=== PATIENT | female | born 1995 | race Caucasian/White ===

== ENCOUNTER 2018-08-23 17:12 | Emergency (ER) | payer MEDICAID ==
--- NOTE | 2018-08-23 18:09 | ER Document Report ---
ED Medical Screen (RME) - General Chief Complaint: Abdominal Pain Stated Complaint: LOWER ABDOMINAL PAIN Time Seen by Provider: 08/23/18 18:02 Mode of Arrival: Ambulatory Information source: Patient Notes: Patient is an otherwise healthy 23-year-old female who presents to the emergency department with chief complaint of low abdominal and pelvic pain. Patient reports pain has been going on for several days, she also reports abnormal discharge that she describes as a grayish/bloody discharge. He denies any concern for sexually transmitted infections. Denies any fevers, nausea, vomiting or diarrhea. Exam: Tenderness to palpation to suprapubic area. I have greeted and performed a rapid initial assessment of this patient. A comprehensive ED assessment and evaluation of the patient, analysis of test results and completion of the medical decision making process will be conducted by additional ED providers. Dictation of this chart was performed using voice recognition software; therefore, there may be some unintended grammatical errors. TRAVEL OUTSIDE OF THE U.S[place] IN LAST 30 DAYS: No - Related Data Allergies/Adverse Reactions: latex Allergy (Verified 08/23/18 17:14) Past Medical History Renal/ Medical History: Denies: Hx Peritoneal Dialysis Physical Exam - Vital signs Vitals: Temp Pulse Resp BP Pulse Ox 97.7 F 85 16 123/69 99 08/23/18 17:38 08/23/18 17:38 08/23/18 17:38 08/23/18 17:38 08/23/18 17:38 Course - Vital Signs Vital signs: Temp Pulse Resp BP Pulse Ox 97.7 F 85 16 123/69 99 08/23/18 17:38 08/23/18 17:38 08/23/18 17:38 08/23/18 17:38 08/23/18 17:38
[2018-08-23 18:41] LABS: HEMATOCRIT 36.6 % (36.0-47.0)
[2018-08-23 18:47] LABS: HEMOGLOBIN 12.3 g/dL (12.0-15.5); MEAN CORPUSCULAR HEMOGLOBIN 27.2 pg (27.0-33.4); MEAN CORPUSCULAR HGB CONC 33.5 g/dL (32.0-36.0); MEAN CORPUSCULAR VOLUME 81 fl (80-97); PLATELET COUNT 295 10^3/uL (150-450); RED BLOOD COUNT 4.52 10^6/uL (3.72-5.28); RED CELL DISTRIBUTION WIDTH 16.3 % (11.5-14.0); WHITE BLOOD COUNT 5.7 10^3/uL (4.0-10.5)
[2018-08-23 19:00] LABS: ALANINE AMINOTRANSFERASE 17 U/L (9-52); ALBUMIN 4.1 g/dL (3.5-5.0); ALKALINE PHOSPHATASE 62 U/L (38-126); ANION GAP 7 (5-19); ASPARTATE AMINO TRANSFERASE 17 U/L (14-36); BILIRUBIN,DIRECT 0.2 mg/dL (0.0-0.4); BILIRUBIN,TOTAL 0.2 mg/dL (0.2-1.3); BLOOD UREA NITROGEN 11 mg/dL (7-20); CALCIUM 9.4 mg/dL (8.4-10.2); CARBON DIOXIDE 23 mmol/L (22-30); CHLORIDE 110 mmol/L (98-107); POTASSIUM 3.7 mmol/L (3.6-5.0); SODIUM 139.7 mmol/L (137-145); TOTAL PROTEIN 7.1 g/dL (6.3-8.2)
[2018-08-23 19:02] LABS: GLUCOSE 66 mg/dL (75-110)
[2018-08-23 19:09] LABS: APPEARANCE,URINE CLOUDY; BILIRUBIN,URINE NEGATIVE (NEGATIVE); COLOR,URINE YELLOW; GLUCOSE, URINE NEGATIVE (NEGATIVE); KETONES,URINE NEGATIVE (NEGATIVE); LEUKOCYTE ESTERASE,URINE TRACE (NEGATIVE); NITRITE,URINE NEGATIVE (NEGATIVE); PROTEIN,URINE 30 mg/dL (NEGATIVE); URINE SPECIFIC GRAVITY 1.032
[2018-08-23 19:10] LABS: ABSOLUTE LYMPHOCYTES# (MANUAL) 2.4 10^3/uL (0.5-4.7); ABSOLUTE MONOCYTES # (MANUAL) 0.6 10^3/uL (0.1-1.4); ABSOLUTE NEUTROPHILS# (MANUAL) 2.5 10^3/uL (1.7-8.2); BASOPHILS % (MANUAL) 0 % (0-2); EOSINOPHILS % (MANUAL) 5 % (0-6); LYMPHOCYTES % (MANUAL) 40 % (13-45); MONOCYTES % (MANUAL) 10 % (3-13); SEGMENTED NEUTROPHILS % (MAN) 43 % (42-78); TOTAL CELLS COUNTED 100
[2018-08-23 19:11] LABS: PLATELET COMMENT ADEQUATE
[2018-08-23 19:18] LABS: ANISOCYTOSIS 1+; HYPOCHROMASIA SLIGHT; TEAR DROP CELLS 2+
--- NOTE | 2018-08-23 21:01 | ER Document Report ---
ED General - General Chief Complaint: Abdominal Pain Stated Complaint: LOWER ABDOMINAL PAIN Time Seen by Provider: 08/23/18 18:02 Primary Care Provider: DONALD ENCISO MD [Primary Care Provider] - Follow up as needed Mode of Arrival: Ambulatory TRAVEL OUTSIDE OF THE U.S. IN LAST 30 DAYS: No - HPI Patient complains to provider of: Right-sided pelvic pain Onset: Last week Onset/Duration: Gradual, Constant Quality of pain: Sharp Severity: Moderate Pain Level: 3 Associated symptoms: denies: Chills, Fever Exacerbated by: Movement Relieved by: Denies Similar symptoms previously: Yes Recently seen / treated by doctor: No Notes: Patient is a 23-year-old female coming in today with pain in her right pelvic area for the past week. Has had nausea. Has had abdominal bloating. Has had decreased appetite. Has had unintended weight loss. Patient reports a history of ovarian carcinoma which was treated in [place] a while ago. She is concerned because the symptoms that she is experiencing today are similar to those that she felt when she was diagnosed. - Related Data Allergies/Adverse Reactions: latex Allergy (Verified 08/23/18 17:14) Past Medical History - General Information source: Patient - Social History Smoking Status: Current Every Day Smoker Family History: Reviewed & Not Pertinent Patient has suicidal ideation: No Patient has homicidal ideation: No Renal/ Medical History: Denies: Hx Peritoneal Dialysis Review of Systems - Review of Systems Notes: Constitutional: No fevers. No chills. Positive for weight loss EENT: No eye redness. No eye pain. No ear pain. No sore throat. Cardiovascular: No chest pain. No palpitations. Respiratory: No cough. No shortness of breath. No respiratory distress. Gastrointestinal: No abdominal pain. No nausea, vomiting, or diarrhea. Positive for appetite loss Genitourinary: Atraumatic. No lesions. No pain. No discharge. Positive for right sided pelvic pain Musculoskeletal: Atraumatic. No swelling. No deformities. Skin: No rash or lesions. Lymphatic: No swollen lymph nodes. Neurologic: No headache. No syncope. Psychiatric: No suicidal or homicidal ideation. Physical Exam - Vital signs Vitals: Temp Pulse Resp BP Pulse Ox 97.7 F 85 16 123/69 99 08/23/18 17:38 08/23/18 17:38 08/23/18 17:38 08/23/18 17:38 08/23/18 17:38 - Notes Notes: General: Well-developed, well-nourished. In no acute distress. Non-toxic appearing. Cardiac: Well-perfused. Regular rate and rhythm. No murmurs, rubs, or gallops. Pulmonary: No respiratory distress. No cyanosis. Bilateral lung fiels are clear to auscultation. Abdominal: Non-distended. Non-rigid. Bowels sounds are present in all four quadrants. No guarding or rebound. Right lower quadrant/right pelvic tenderness to palpation HEENT: Head is atraumatic. Conjunctivae not reddened. No tearing. PERRL. EOMI. Orbits atraumatic. No periorbital swelling or erythema. Oropharynx is without erythema, swelling, or exudates. Neck: Supple. No adenopathy. No meningismus. Dermatologic: Warm with good turgor. No rash. Atraumatic. Chest: Atraumatic. No chest wall tenderness to palpation. Musculoskeletal: Moves all extremities well. No range of motion deficits. no muscular or joint tenderness. No paraspinal muscle tenderness. no midline spinal tenderness or step-off. Genitourinary: Examination deferred Neurologic: No gross neurologic deficits. Psychiatric: Normal mood. Course - Re-evaluation Re-evalutation: 08/23/18 21:00 Patient refuses STD swabs. Only interested in finding out if there is something going on with her ovaries or something requiring surgery. Pelvic exam is also refused. Labs have been drawn. Given her history, will order CT scan abdomen and pelvis with IV contrast. 08/23/18 22:41 CT scan was negative. Labs are reassuring. No evidence of anemia. Will write for some pain medication and nausea medication for over the weekend. I will have her follow-up with the gynecology group on Sunday have this further assessed. - Vital Signs Vital signs: Temp Pulse Resp BP Pulse Ox 97.7 F 85 16 123/69 99 08/23/18 17:38 08/23/18 17:38 08/23/18 17:38 08/23/18 17:38 08/23/18 17:38 - Laboratory Result Diagrams: 08/23/18 18:00 08/23/18 18:00 Laboratory results interpreted by me: 08/23/18 08/23/18 08/23/18 18:00 18:00 18:00 RDW 16.3 H Chloride 110 H Glucose 66 L Urine Protein 30 H Urine Urobilinogen 2.0 H Ur Leukocyte Esterase TRACE H Discharge - Discharge Clinical Impression: Right lower quadrant pain Condition: Good Disposition: HOME, SELF-CARE Instructions: Abdominal Pain ([facility]) Additional Instructions: Because of your cancer history, I would like for you to follow-up with the gynecology practice. Please call their phone number on Sunday and explain that you are seen in the emergency department and that we referred you there. Prescriptions: Ondansetron [Zofran Odt 4 mg Tablet] 1 - 2 tab PO Q4HP PRN #15 tab.rapdis PRN Reason: Hydrocodone/Acetaminophen [Mont[place] 5-325 mg Tablet] 1 tab PO Q6HP PRN #15 tablet PRN Reason: Referrals: DONALD ENCISO MD [Primary Care Provider] - Follow up as needed
--- NOTE | 2018-08-23 21:53 | RADIOLOGY REPORT (SQ) ---
EXAM DESCRIPTION: CT ABDOMEN PELVIS WITH IV CONTRAST COMPLETED DATE/TME: 08/23/2018 20:57 CLINICAL HISTORY: 23 years, Female, Right lower abdomen pain COMPARISON: None. EXAM DESCRIPTION: CLINICAL HISTORY: Right lower abdomen pain COMPARISON: None Available TECHNIQUE: Contiguous axial images of the abdomen and pelvis were obtained after the administration of intravenous contrast followed by reconstruction images.This exam was performed according to our departmental dose-optimization program, which includes automated exposure control, adjustment of the mA and/or kV according to patient size and/or use of iterative reconstruction technique. FINDINGS: Clips are in the right lower quadrant. There is no evidence of appendicitis. Small paraumbilical hernia contains fat but no bowel. The liver, spleen, pancreas and kidneys are within normal limits. There is no hydronephrosis. The gallbladder is unremarkable. Adrenal glands are within normal limits. Aorta is normal in caliber and tapering. No significant free fluid. No free air. No bowel obstruction. There is no stranding of the mesenteric fat. IMPRESSION: No acute intra-abdominal abnormality
[2018-08-23 23:10] VITALS: BP 113/64
== END 2018-08-23 23:10 | disposition home or self-care (01) ==
LOC: ER 17:12
DX: R10.31 Right lower quadrant pain (principal); R10.813 Right lower quadrant abdominal tenderness; R10.2 Pelvic and perineal pain; R11.0 Nausea; R63.4 Abnormal weight loss; R63.0 Anorexia; R14.0 Abdominal distension (gaseous); F17.200 Nicotine dependence, unspecified, uncomplicated; Z91.040 Latex allergy status; Z85.43 Personal history of malignant neoplasm of ovary
CPT/HCPCS: 36415; 74177; 80053; 81001; 84703; 85025; 87086; 99284

== ENCOUNTER 2019-05-24 14:48 | Emergency (ER) | payer SELFPAY ==
[2019-05-24 14:52] VITALS: BP 110/63
[2019-05-24] MEDS ORDERED: MAG HYDROX/AL HYDROX/SIMETH SUSP 30 ML UDCUP PO ONE (16:37)
[2019-05-24] MEDS ORDERED: METOCLOPRAMIDE HCL ORAL SOLN 10 MG/10 ML UDCUP PO ONE (16:37)
[2019-05-24] MEDS ORDERED: LIDOCAINE 2% VISCOUS SOLN 20 ML UDCUP PO ONE (16:37)
--- NOTE | 2019-05-24 16:40 | ER Document Report ---
ED Medical Screen (RME) - General Chief Complaint: Lower Abdominal Pain Stated Complaint: ABDOMINAL PAIN Time Seen by Provider: 05/24/19 16:32 Primary Care Provider: DONALD ENCISO MD [Primary Care Provider] - Follow up as needed Notes: Patient is a 24-year-old female who presents the emergency department with a chief complaint of epigastric pain. Her symptoms started yesterday. She states that it feels like a burning pain. It comes and goes. Patient has history of cholelithiasis in the past and was supposed to have her gallbladder removed, but she has not. Patient also has history of a tubal ligation. Exam: Mildly tender mid upper abdomen. I have greeted and performed a rapid initial assessment of this patient. A comprehensive ED assessment and evaluation of the patient, analysis of test results and completion of medical decision making process will be conducted by an additional ED providers. TRAVEL OUTSIDE OF THE [place] IN LAST 30 DAYS: No - Related Data Allergies/Adverse Reactions: latex Allergy (Verified 08/23/18 17:14) Past Medical History - Social History Chew tobacco use (# tins/day): No Frequency of alcohol use: None Drug Abuse: None Renal/ Medical History: Denies: Hx Peritoneal Dialysis Physical Exam - Vital signs Vitals: Temp Pulse Resp BP Pulse Ox 97.9 F 71 14 110/63 98 05/24/19 14:51 05/24/19 14:51 05/24/19 14:51 05/24/19 14:51 05/24/19 14:51 Course - Vital Signs Vital signs: Temp Pulse Resp BP Pulse Ox 97.9 F 71 14 110/63 98 05/24/19 14:51 05/24/19 14:51 05/24/19 14:51 05/24/19 14:51 05/24/19 14:51 Doctor's Discharge - Discharge Referrals: DONALD ENCISO MD [Primary Care Provider] - Follow up as needed
[2019-05-24 17:13] LABS: ABSOLUTE BASOPHILS # (AUTO) 0.1 10^3/uL (0.0-0.2); ABSOLUTE EOSINOPHILS # (AUTO) 0.3 10^3/uL (0.0-0.6); ABSOLUTE LYMPHOCYTES (AUTO) 2.4 10^3/uL (0.5-4.7); ABSOLUTE MONOCYTES (AUTO) 0.8 10^3/uL (0.1-1.4); ABSOLUTE NEUT (AUTO) 3.9 10^3/uL (1.7-8.2); BASOPHILS % (AUTO) 1.3 % (0-2); EOSINOPHILS % (AUTO) 4.1 % (0-6); HEMATOCRIT 35.1 % (36.0-47.0); HEMOGLOBIN 11.2 g/dL (12.0-15.5); LYMPHOCYTES % (AUTO) 32.1 % (13-45); MEAN CORPUSCULAR HEMOGLOBIN 23.5 pg (27.0-33.4); MEAN CORPUSCULAR HGB CONC 31.9 g/dL (32.0-36.0); MEAN CORPUSCULAR VOLUME 74 fl (80-97); MONOCYTES % (AUTO) 10.9 % (3-13); PLATELET COUNT 361 10^3/uL (150-450); RED BLOOD COUNT 4.77 10^6/uL (3.72-5.28); RED CELL DISTRIBUTION WIDTH 17.7 % (11.5-14.0); SEGMENTED NEUTROPHILS % (AUTO) 51.6 % (42-78); TOTAL CELLS COUNTED % (AUTO) 100 %; WHITE BLOOD COUNT 7.6 10^3/uL (4.0-10.5)
[2019-05-24 17:16] LABS: APPEARANCE,URINE SLIGHTLY-CLOUDY; BILIRUBIN,URINE NEGATIVE (NEGATIVE); COLOR,URINE YELLOW; GLUCOSE, URINE NEGATIVE (NEGATIVE); KETONES,URINE NEGATIVE (NEGATIVE); LEUKOCYTE ESTERASE,URINE NEGATIVE (NEGATIVE); NITRITE,URINE NEGATIVE (NEGATIVE); PROTEIN,URINE NEGATIVE (NEGATIVE); URINE SPECIFIC GRAVITY 1.028
[2019-05-24 17:31] LABS: ALBUMIN 4.4 g/dL (3.5-5.0); ALKALINE PHOSPHATASE 60 U/L (38-126); ANION GAP 8 (5-19); ASPARTATE AMINO TRANSFERASE 17 U/L (14-36); BILIRUBIN,DIRECT 0.2 mg/dL (0.0-0.4); BILIRUBIN,TOTAL 0.3 mg/dL (0.2-1.3); BLOOD UREA NITROGEN 11 mg/dL (7-20); CALCIUM 9.4 mg/dL (8.4-10.2); CARBON DIOXIDE 26 mmol/L (22-30); CHLORIDE 107 mmol/L (98-107); GLUCOSE 88 mg/dL (75-110); POTASSIUM 3.7 mmol/L (3.6-5.0); TOTAL PROTEIN 7.4 g/dL (6.3-8.2)
--- NOTE | 2019-05-24 18:21 | RADIOLOGY REPORT (SQ) ---
EXAM DESCRIPTION: U/S ABDOMEN LIMITED W/O DOP COMPLETED DATE/TIME: 05/24/2019 5:27 pm REASON FOR STUDY: epigastric pain COMPARISON: None. TECHNIQUE: Dynamic and static grayscale images acquired of the abdomen and recorded on PACS. Additio nal selected color Doppler and spectral images recorded. LIMITATIONS: None. FINDINGS: PANCREAS: No masses. Visualized pancreatic duct normal caliber. LIVER: No masses. Echotexture normal. LIVER VASCULATURE: Normal directional flow of the main portal vein and hepatic veins. GALLBLADDER: No stones. Normal wall thickness. No pericholecystic fluid. ULTRASOUND-DETECTED BOLIVAR'S SIGN: Negative. INTRAHEPATIC DUCTS AND COMMON DUCT: CBD and intrahepatic ducts normal caliber. No filling defects. INFERIOR VENA CAVA: Normal flow. AORTA: No aneurysm. RIGHT KIDNEY: Normal size. Normal echogenicity. No solid or suspicious masses. No hydronephrosis. No calcifications. PERITONEAL AND RIGHT PLEURAL SPACE: No ascites or effusions. OTHER: No other significant findings. IMPRESSION: No ultrasound abnormality of the right upper quadrant. No findings to explain pain. Co nsider CT or MRI to further evaluate otherwise unexplained abdominal pain. TECHNICAL DOCUMENTATION: JOB ID: [id number] [employer]- All Rights Reserved Reading location - IP/workstation name: [email or web address]
== END 2019-05-24 19:20 | disposition left against medical advice (07) ==
LOC: ER 14:48
DX: Z53.21 Procedure and treatment not carried out due to patient leaving prior to being seen by health care provider (principal); R10.30 Lower abdominal pain, unspecified; R10.13 Epigastric pain
CPT/HCPCS: 99281; 36415; 83690; 84703; 85025; 80053; 81001; 76705; J3490

== ENCOUNTER 2019-05-27 11:46 | Emergency (ER) | payer SELFPAY ==
[2019-05-27 11:51] VITALS: BP 122/63
[2019-05-27] MEDS ORDERED: PENICILLIN V POTASSIUM 500 MG TABLET PO ONE (11:54)
--- NOTE | 2019-05-27 11:59 | ER Document Report ---
ED Oral Problem - General Chief Complaint: Mouth Problem Stated Complaint: TOOTH PAIN/MOUTH SWELLING Time Seen by Provider: 05/27/19 11:53 Primary Care Provider: DONALD ENCIOS MD [PEDIATRICS] - Follow up as needed TRAVEL OUTSIDE OF THE [place].S[place] IN LAST 30 DAYS: No - HPI Patient complains to provider of: Toothache Onset: Yesterday Onset: Gradual Quality of pain: Throbbing Severity: Moderate Pain Level: 3 Associated symptoms: Toothache, Other Worsened by: Cold Similar symptoms previously: Yes Recently seen / treated by doctor/dentist: No - Related Data Allergies/Adverse Reactions: latex Allergy (Verified 05/27/19 11:51) Past Medical History - General Information source: Patient - Social History Smoking Status: Current Every Day Smoker Cigarette use (# per day): Yes - 1 Smoking Education Provided: Yes - 4 min Frequency of alcohol use: None Drug Abuse: Marijuana Occupation: [employer] Lives with: Family Family History: Hypertension Patient has suicidal ideation: No Patient has homicidal ideation: No - Past Medical History Cardiac Medical History: Reports: None Pulmonary Medical History: Reports: None EENT Medical History: Reports: None Neurological Medical History: Reports: None Endocrine Medical History: Reports: None Renal/ Medical History: Reports: None Malignancy Medical History: Reports: None GI Medical History: Reports: None, Hx Ulcer, Hx Endoscopy Musculoskeletal Medical History: Reports None Skin Medical History: Reports None Psychiatric Medical History: Reports: None Traumatic Medical History: Reports: None Infectious Medical History: Reports: None Past Surgical History: Reports: Hx Tubal Ligation - Immunizations Immunizations up to date: Yes Hx Diphtheria, Pertussis, Tetanus Vaccination: Yes Review of Systems - Review of Systems Constitutional: No symptoms reported EENT: Mouth pain, Dental problem Cardiovascular: No symptoms reported Respiratory: No symptoms reported Gastrointestinal: No symptoms reported Genitourinary: No symptoms reported Female Genitourinary: No symptoms reported Musculoskeletal: No symptoms reported Skin: No symptoms reported Hematologic/Lymphatic: No symptoms reported Neurological/Psychological: No symptoms reported Physical Exam - Vital signs Vitals: Temp Pulse Resp BP Pulse Ox 98.7 F 88 16 122/63 97 05/27/19 11:49 05/27/19 11:49 05/27/19 11:49 05/27/19 11:49 05/27/19 11:49 Interpretation: Normal - General General appearance: Appears well, Alert - HEENT Head: Normocephalic, Atraumatic Eyes: Normal Pupils: PERRL Teeth diagram: 1 - . Dental cavities with swelling to the gums and cheek - Respiratory Respiratory status: No respiratory distress Chest status: Nontender Breath sounds: Normal Chest palpation: Normal - Cardiovascular Rhythm: Regular Heart sounds: Normal auscultation Murmur: No - Abdominal Inspection: Normal Distension: No distension Bowel sounds: Normal Tenderness: Nontender Organomegaly: No organomegaly - Back Back: Normal, Nontender - Extremities General upper extremity: Normal inspection, Nontender, Normal color, Normal ROM, Normal temperature General lower extremity: Normal inspection, Nontender, Normal color, Normal ROM, Normal temperature, Normal weight bearing. No: Roger's sign - Neurological Neuro grossly intact: Yes Cognition: Normal Orientation: AAOx4 [place] Coma Scale Eye Opening: Spontaneous [place] Coma Scale Verbal: Oriented Shiva Coma Scale Motor: Obeys Commands [place] Coma Scale Total: 15 Speech: Normal Motor strength normal: LUE, RUE, LLE, RLE Sensory: Normal - Psychological Associated symptoms: Normal affect, Normal mood - Skin Skin Temperature: Warm Skin Moisture: Dry Skin Color: Normal Course - Re-evaluation Re-evalutation: 05/27/19 12:00 Presentation is most consistent with likely an infected tooth. Airway is patent. Vitals within normal limits. Patient is able swallow without any difficulty. There is no significant facial swelling. No evidence of Johnnie angina, apical abscess, or airway obstruction. Patient will be started on antibiotics. I've instructed to follow-up with dentistry as earliest ability for definitive management. At this time will discharge with return precautions and follow-up recommendations. Verbal discharge instructions given a the bedside and opportunity for questions given. Medication warnings reviewed. Patient is in agreement with this plan and has verbalized understanding of return precautions and the need for primary care follow-up in the next 24-72 hours. - Vital Signs Vital signs: Temp Pulse Resp BP Pulse Ox 98.7 F 88 16 122/63 97 05/27/19 11:49 05/27/19 11:49 05/27/19 11:49 05/27/19 11:49 05/27/19 11:49 Discharge - Discharge Clinical Impression: Pain due to dental caries Condition: Stable Disposition: HOME, SELF-CARE Additional Instructions: TOOTHACHE: Your pain is due to dental decay. The tooth must be repaired in order for you to feel better. You will, therefore, be referred to a dentist. We do not have dentists on the staff at [facility]. Severe swelling or drainage around a tooth usually means a dental abscess. This also requires evaluation and treatment by the dentist, but antibiotics may be prescribed while awaiting dental treatment. You should be rechecked immediately if you develop major swelling of the face, increasing pain, a lump in the jaw or gums, headache, difficulty swallowing, or fever. ORAL NARCOTIC MEDICATION: You have been given a norco disp pack for pain control. This medication is a narcotic. It's best taken with food, as nausea can result if taken on an empty stomach. Don't operate machinery or drive within six hours of taking this medication. Do not combine this medicine with alcohol, or with any medication which can cause sedation (such as cold tablets or sleeping pills) unless you get permission from the physician. Narcotics tend to cause constipation. If possible, drink plenty of fluids and eat a diet high in fiber and fruits. Please be aware that prescription narcotics also have the potential for abuse. People become addicted to these medications because of the general sense of wellbeing that they induce. This feeling along with a significant reduction in tension, anxiety, and aggression provides a stimulating seductive quality to these drugs. Once your pain is under control, we encourage you to discard your unused narcotics. PENICILLIN V K: You have been given a prescription for Penicillin VK. Your physician has determined that this is the best antibiotic for your condition. Pen VK can be taken with meals, however more of the antibiotic gets into the bloodstream if it's taken on an empty stomach. Penicillin usually has no side effects. However, allergy to penicillins is common. If you have had an allergic reaction to any drug of the penicillin family, you should never take any other penicillin. Notify your doctor at once if you develop hives, itching, swelling, faintness, or shortness of breath. FOLLOW-UP CARE: You have been referred for follow-up care to the dentists listed below. Call the dentists office for an appointment as you were instructed or within the next two days. If you experience worsening or a significant change in your symptoms, notify the physician immediately or return to the Emergency Department at any time for re-evaluation. [facility] [address] [place], [place] Caleb mornings, by appointment [facility] [address] [place] [address] [facility] [address] [facility] [address] [facility] [address] [facility] [email or web address] [facility] [address] [place] [address] Sunday- 8:00am to 5:00 pm Will see patients from other [facility]. Charges based on income and family size and accepts Medicare, Medicaid, and Insurances Will pull molars [facility] [address] Hours of Operation 8:00 am - 4:30 pm weekdays The following dental offices accept Medicaid: [facility] Dr. Garg Dr. Frank Dr. Cowan Dr. Garcia Manish Garcia Lutsavage, and Jelly oral surgery Dr. Rockwell ([place]) Dr. Rosas ([place] D[place]) [facility] Drs. Wilson and Eduardo ([place]) Dr. Royal ([place]) [facility] Dr. Trujillo ([place]) Drs. Vargas and ([place]) Medicaid Care Line Prescriptions: Penicillin V Potassium [Penicillin Vk 500 mg Tablet] 500 mg PO QID #28 tablet Forms: Smoking Cessation Education, Return to Work Referrals: DONALD ENCISO MD [PEDIATRICS] - Follow up as needed
[2019-05-27] MEDS ORDERED: HYDROCODONE/ACETAMINOPHEN 5-325 MG (6 TAB/ER DISP) PO PRN (12:01)
== END 2019-05-27 12:06 | disposition home or self-care (01) ==
LOC: ER 11:46
DX: K02.9 Dental caries, unspecified (principal); K08.89 Other specified disorders of teeth and supporting structures; R22.0 Localized swelling, mass and lump, head; Z91.040 Latex allergy status; F17.210 Nicotine dependence, cigarettes, uncomplicated; Z71.6 Tobacco abuse counseling
CPT/HCPCS: 99282